=== PATIENT | male | born 1945 | race Caucasian/White ===

== ENCOUNTER 2016-05-28 07:53 | Emergency (ER) | payer OTHER ==
[2016-05-28 08:03] VITALS: BP 140/80; PULSE 62; RESP 18; TEMP 97.9; O2SAT 96
--- NOTE | 2016-05-28 08:25 | UCPHY ---
H & P Time Seen by Provider: 05/28/16 08:07 Patient Type: Established HPI/ROS: CHIEF COMPLAINT: Facial rash HISTORY OF PRESENT ILLNESS: 71-year-old male presents with a facial rash. Onset of itchiness in the right eyebrow 5 days ago. Over the past 5 days he has developed several red and swollen areas on the right side of his face. Associated with mild pain and persistent itchiness of the forehead and right periorbital area. No eye pain or visual change. REVIEW OF SYSTEMS: Constitutional: No fever, no chills Eyes: No visual changes ENT: No sore throat Respiratory: No cough, no shortness of breath Cardiac: No chest pain Gastrointestinal: No nausea, no vomiting Neurological: No headache Past Medical/Surgical History: Denies Smoking Status: Never smoked Physical Exam: General Appearance: Alert, no distress Eyes: Pupils equal and round, no conjunctival pallor or injection ENT, Mouth: Mucous membranes moist Neck: Normal inspection Neurological: A&O, nonfocal, normal gait Skin: Warm and dry, multiple excoriated lesions on an erythematous base involving the right periorbital area Psychiatric: Mood and affect normal Constitutional: Initial Vital Signs Temperature (C) 36.6 C 05/28/16 08:01 Heart Rate 62 05/28/16 08:01 Respiratory Rate 18 05/28/16 08:01 Blood Pressure 140/80 H 05/28/16 08:01 O2 Sat (%) 96 05/28/16 08:01 Allergies/Adverse Reactions: No Known Allergies Allergy (Verified 05/28/16 07:56) Home Medications: Medication Instructions Recorded Valacyclovir HCl [Valtrex] 1,000 mg PO TID #21 tab 05/28/16 MDM/Departure - [facility] ED Course/Re-evaluation: This patient presents with uncomplicated shingles, fortunately with minimal pain. I will give him a prescription for Valtrex, though he understands that it may not help, given the prolonged time since onset. - Depart Disposition: Home, Routine, Self-Care Clinical Impression: Shingles Qualifiers: Herpes zoster complications: without complications Qualified Code(s): B02.9 - Zoster without complications Condition: Good Instructions: Shingles (ED) Additional Instructions: Ibuprofen 600 mg 3 times daily while the pain persists. Prescriptions: Valacyclovir HCl [Valtrex] 1,000 mg PO TID #21 tab Referrals: Jalen Gamble MD [Primary Care Provider] - 5-7 days, if not improved - PQRS PQRS Measurement: 134: Depression screening and followup, PRIME -PHQ2 (12 years and older) Over the last 2 weeks, how often have you been bothered by any of the following problems? 1. Feeling down, depressed, or hopeless? 2. Little interest or pleasure in doing things? Patient answered no to both 1 and 2 130: Documentation of medications. Reviewed all patient medications, doses, route and frequency. 226: Do you smoke? No. 47: 65 and older: Advanced care planning. Patient designates surrogate decision maker as spouse. 51: 18 years old and older with diagnosis of COPD, spirometry performance. Patient has no history of COPD 52: 18 years old and older with COPD and symptoms of COPD or FEV1<60% predicted prescribed a B Agonist. NA
== END 2016-05-28 08:27 | disposition home or self-care (01) ==
LOC: CED 07:53
DX: B02.9 Zoster without complications (principal)
CPT/HCPCS: G0463-PO